=== PATIENT | female | born 1995 | race Hispanic/Latino ===

== ENCOUNTER 2021-06-01 22:29 | Emergency (ER) | payer BC ==
[~2021-06-01] VITALS: Ht 162.6 cm; Wt 88.0 kg
[2021-06-01 23:26] LABS: BASOPHILS % (AUTO) 0.3 % (0.0-5.0); EOSINOPHILS % (AUTO) 0.3 % (0.0-8.0); LYMPHOCYTES % (AUTO) 7.4 % (21.0-51.0); MEAN CORPUSCULAR HEMOGLOBIN 30.1 pg (27.0-33.0); MEAN CORPUSCULAR HGB CONC 33.5 g/dL (32.0-36.0); MEAN CORPUSCULAR VOLUME 89.8 fL (79-99); MONOCYTES % (AUTO) 2.8 % (3.0-13.0); NEUTROPHILS % (AUTO) 88.7 % (40.0-77.0); PLATELET COUNT (AUTO) 397 K/uL (130-400); RED BLOOD CELL COUNT(AUTO) 4.79 MIL/uL (4.00-5.50); RED CELL DISTRIBUTION WIDTH 12.5 % (11.0-15.5); WHITE BLOOD COUNT (AUTO) 19.4 K/uL (4.8-10.8)
[2021-06-01] MEDS ORDERED: ZOSYN 3.375GM+NS 50ML 50 ML IV SCH (23:30)
[2021-06-01] MEDS ORDERED: KETOROLAC 30MG VIAL (30MG/ML) IV ONE (23:30)
[2021-06-01] MEDS ORDERED: ONDANSETRON 4MG INJ IVP ONE (23:30)
[2021-06-01] MEDS ORDERED: 0.9%NACL 1000ML 1,000 ML IV SCH (23:30)
[2021-06-01 23:36] LABS: APPEARANCE,URINE Clear (CLEAR); BILIRUBIN,URINE Negative (NEGATIVE); COLOR,URINE Dark Yellow (YELLOW); GLUCOSE, URINE (UA) Negative (NEGATIVE); KETONES,URINE Trace mg/dL (NEGATIVE); LEUKOCYTE ESTERASE ,URINE Small (NEGATIVE); NITRATE,URINE Negative (NEGATIVE); OCCULT BLOOD,URINE Large (NEGATIVE); PH,URINE 6.5 (5.0-8.0); PROTEIN,URINE POS 2+ mg/dL (NEGATIVE)
[2021-06-01 23:38] LABS: HCG,QUAL RESULT NEGATIVE (NEGATIVE)
[2021-06-01] MEDS ORDERED: 0.9%NACL 1000ML 1,000 ML IV ONE (23:45)
[2021-06-01 23:47] LABS: CREATININE 0.9 mg/dL (0.5-1.5)
[2021-06-01 23:48] LABS: BACTERIA,URINE Few /HPF (None Seen); MUCUS,URINE Rare LPF (None Seen); RBC,URINE 26-50 /HPF (0-1)
[2021-06-01 23:52] LABS: ALBUMIN 4.6 g/dL (3.5-5.0); BILIRUBIN,TOTAL 0.3 mg/dL (0.2-1.0); CRP QUANTITATIVE 5.3 mg/L (0.00-9.0); TOTAL PROTEIN, SERUM 8.8 g/dL (6.0-8.3)
[2021-06-01] MEDS ORDERED: IOHEXOL 350 MG/ML 100ML INFUS..BTL IV ONE (23:58)
[2021-06-02 01:21] VITALS: BP 121/78
[2021-06-02] MEDS ORDERED: KETO10 PO (01:21)
[2021-06-02] MEDS ORDERED: TAMS-1 PO (01:21)
[2021-06-02] MEDS ORDERED: CEPH500B PO (01:21)
[2021-06-02] MEDS ORDERED: TAMSULOSIN HCL 0.4 MG CAP.ER.24H PO SCH (01:30)
[2021-06-02] MEDS ORDERED: TAMSULOSIN HCL 0.4 MG CAP.ER.24H ONE (01:32)
== END 2021-06-02 02:28 | disposition home or self-care (01) ==
LOC: EDH 22:29
DX: N13.30 Unspecified hydronephrosis (principal); N23 Unspecified renal colic; E66.9 Obesity, unspecified; Z79.899 Other long term (current) drug therapy; Z68.33 Body mass index [BMI] 33.0-33.9, adult
CPT/HCPCS: 36415; 74177; 80053; 81001; 81025; 83690; 85025; 86140; 96365; 96375; 99284; J1885; J2405; J2543; J7030; Q9967